=== PATIENT | female | born 1990 | race Asian ===

== ENCOUNTER 2017-01-15 01:18 | Inpatient (IN) | payer SELFPAY ==
[~2017-01-15] VITALS: Ht 160 cm; Wt 65.3 kg
[2017-01-15] MEDS ORDERED: LR 500 ML IV ONE ×2 (01:50→03:21)
[2017-01-15] MEDS ORDERED: OXYTOCIN/NORMAL SALINE 1,000 ML IV SCH ×2 (01:50→13:01)
[2017-01-15] MEDS ORDERED: LR 1,000 ML IV ONE (01:50)
[2017-01-15] MEDS ORDERED: LR 1,000 ML IV SCH (01:50)
[2017-01-15] MEDS ORDERED: NALBUPHINE HCL 10 MG/ML AMP IVP PRN (02:00)
[2017-01-15] MEDS ORDERED: TERBUTALINE SULFATE 1 MG/ML VIAL SUBCUT ONE (02:00)
[2017-01-15] MEDS ORDERED: AMPICILLIN SODIUM 2 GM in NS 100 ML IV SCH (02:00)
[2017-01-15 02:25] LABS: MEAN CORPUSCULAR HEMOGLOBIN 30 pg (27-31)
[2017-01-15 02:30] LABS: BASOPHILS # (AUTO) 0.1 K/uL (0.0-0.2); BASOPHILS % (AUTO) 1.2 % (0.0-2.0); EOSINOPHILS # (AUTO) 0.1 K/uL (0.0-0.4); EOSINOPHILS % (AUTO) 0.9 % (0.0-4.0); HEMATOCRIT 35.9 % (36-48); HEMOGLOBIN 12.1 g/dL (12.0-16.0); LYMPHOCYTES # (AUTO) 1.6 K/uL (1.0-5.5); LYMPHOCYTES % (AUTO) 14.7 % (20.5-51.5); MEAN CORPUSCULAR HGB CONC 34 % (32-36); MEAN CORPUSCULAR VOLUME 89 fL (79.0-98.0); MONOCYTES % (AUTO) 9.1 % (1.7-9.3); NEUTROPHILS # (AUTO) 8.2 K/uL (1.8-7.7); NEUTROPHILS % (AUTO) 74.1 % (40.0-70.0); PLATELET COUNT (AUTO) 213 K/uL (130-430); RED BLOOD CELL COUNT(AUTO) 4.02 MIL/uL (4.2-6.2); RED CELL DISTRIBUTION WIDTH 14.7 % (9.0-15.0)
[2017-01-15] MEDS ORDERED: AMPICILLIN SODIUM 2 GM VIAL ONE (02:34)
[2017-01-15] MEDS ORDERED: FENT2mCg/mL-ROPIVA0.2%/NS EPID 150 ML EP ONE (02:52)
[2017-01-15] MEDS ORDERED: ePHEDrine sulfate 50 MG/ML VIAL IVP PRN (03:30)
[2017-01-15] MEDS ORDERED: FENT2mCg/mL-ROPIVA0.2%/NS EPID 150 ML EP SCH (03:30)
[2017-01-15] MEDS ORDERED: AMPICILLIN SODIUM 1 GM VIAL ONE (04:55)
[2017-01-15] MEDS ORDERED: AMPICILLIN SODIUM 1 GM in NS 50 ML IV SCH (06:00)
[2017-01-15] MEDS ORDERED: OXYTOCIN/NORMAL SALINE 1,000 ML IV ONE (13:01)
[2017-01-15] MEDS ORDERED: DERMOPLAST SPRAY TP PRN (13:15)
[2017-01-15] MEDS ORDERED: LANOLIN 7 GM OINT. TP PRN (13:15)
[2017-01-15] MEDS ORDERED: DOCUSATE SODIUM 100 MG CAPSULE PO PRN (13:15)
[2017-01-15] MEDS ORDERED: SENNOSIDES/DOCUSATE SODIUM 1 TAB TABLET(SENOKOT-S) PO PRN (13:15)
[2017-01-15] MEDS ORDERED: METHYLERGONOVINE MALEATE 0.2 MG TABLET PO PRN (13:15)
[2017-01-15] MEDS ORDERED: ANUSOL 1 EA SUPP.RECT (PREPARATION H) RC PRN (13:15)
[2017-01-15] MEDS ORDERED: GLYCERIN/WITCH HAZEL (TUCKS PADS) TP PRN (13:15)
[2017-01-15] MEDS ORDERED: OXYCODONE/ACETAMINOPHEN 5-325 TABLET PO PRN ×2 (13:15)
[2017-01-15] MEDS: IBUPROFEN 600 MG TABLET PO SCH ×2 (17:41→23:14)
[2017-01-16] MEDS: IBUPROFEN 600 MG TABLET PO SCH ×4 (04:50→23:46)
[2017-01-16 06:51] LABS: HEMATOCRIT 29.6 % (36-48); HEMOGLOBIN 9.9 g/dL (12.0-16.0)
[2017-01-17] MEDS: IBUPROFEN 600 MG TABLET PO SCH ×2 (06:29→11:59)
[2017-01-17] MEDS ORDERED: DIPH-TET-PERTUS Vaccine 0.5 ML VIAL/Tdap (ADACEL) I.M. PRN (12:30)
[2017-01-17] MEDS ORDERED: MINERAL OIL 30 ML UDC PO ONE (14:59)
== END 2017-01-17 15:00 | disposition home or self-care (01) | DRG 774 ==
LOC: SPU 01:18
PROVIDERS: ADMIT Obstetrics & Gynecology; ATTEND Obstetrics & Gynecology
PROC: 10E0XZZ Delivery of Products of Conception, External Approach (ICD-10-PCS; principal; 2017-01-15)
PROC: 4A0HXCZ Measurement of Products of Conception, Cardiac Rate, External Approach (ICD-10-PCS; 2017-01-15)
PROC: 0W8NXZZ Division of Female Perineum, External Approach (ICD-10-PCS; 2017-01-15)
PROC: 3E0S3CZ (ICD-10-PCS; 2017-01-15)
PROC: 00HU33Z Insertion of Infusion Device into Spinal Canal, Percutaneous Approach (ICD-10-PCS; 2017-01-15)
DX: O99.824 Streptococcus B carrier state complicating childbirth (principal); O73.1 Retained portions of placenta and membranes, without hemorrhage; O77.0 Labor and delivery complicated by meconium in amniotic fluid; Z3A.40 40 weeks gestation of pregnancy; Z37.0 Single live birth
CPT/HCPCS: 36415; 85018-TC; 85025; 86592; 86886; 86900; 86901; 90715; J0290; J0696; J2590; J3010; J7060